=== PATIENT | female | born 2000 | race Caucasian/White ===

== ENCOUNTER 2023-01-04 16:55 | Emergency (ER) | payer SELFPAY ==
[~2023-01-04] VITALS: Ht 167.6 cm; Wt 43.2 kg
[2023-01-04 17:03] VITALS: BP 116/86
[2023-01-04] MEDS ORDERED: ACYC-161 PO (20:02)
[2023-01-04] MEDS ORDERED: PRED20TA2 PO (20:02)
[2023-01-04] MEDS ORDERED: ARTISOL13 RIGHTEYE (20:12)
== END 2023-01-04 20:43 | disposition home or self-care (01) ==
LOC: ER 16:55
DX: G51.0 Bell's palsy (principal); Z20.822 Contact with and (suspected) exposure to COVID-19
CPT/HCPCS: 36415; 70450; 87426; 87804

== ENCOUNTER 2024-11-17 20:02 | Emergency (ER) | payer BC, MEDICAID ==
[~2024-11-17] VITALS: Ht 167.6 cm; Wt 44.5 kg
[~2024-11-17 20:02] MED LIST: ACYC400T16 PO; ARTISOL13 RIGHTEYE; PRED20TA2 PO
[2024-11-17 20:39] VITALS: BP 138/87
[2024-11-17] MEDS ORDERED: AMOX500C2 PO (20:56)
--- NOTE | 2024-11-17 20:57 | ED.PDOC ---
History of Present Illness HPI Comments 24-year-old female who came to ER for fever. Patient states she has been having fever and cough that just started today. Noted also to have throat pain. Patient also been having auditory and visual hallucinations, which has been happening for some time now. Patient denies any suicidal or homicidal ideation s. Has not been taking any medications regarding her hallucinations, nor has she seen a psychiatrist regarding it. Chief Complaint: Fever Time Seen by MD: 20:56 Primary Care Provider: none Reviewed Notes: Nurses Notes Allergies: Coded Allergies: Hydrocodone (Verified Allergy, Unknown, 11/17/24) Home Meds Active Scripts Amoxicillin Trihydrate (Amoxicillin) 500 Mg Cap, 1 CAP PO BID for 10 Days, #20 CAP Prov:GALLO ESTEBAN MD 11/17/24 Artificial Tear Solution (ARTIFICIAL TEARS) Tears Kerry, 1 DROP RIGHTEYE Q1HR PRN, #15 ML 0 Refills Prov:HERMES GONSALVES 01/04/23 Acyclovir (ZOVIRAX TABLET) 400 Mg Tb, 400 MG PO 5XD, #35 TAB 0 Refills Prov:HERMES GONSALVES 01/04/23 Prednisone (Prednisone) 20 Mg Tab, 3 TAB PO DAILY for 7 Days, #21 MG 0 Refills Prov:HREMES GONSALVES 01/04/23 Information Source: Patient Mode of Arrival: Ambulatory Severity: Moderate Timing: Hours Duration: Intermittent Prehospital treatment: None Past Medical History PAST MEDICAL HISTORY: Denies Surgical History: Denies all surgeries FAMILY SERVICE COUNSELOR History: Denies all FAMILY SERVICE COUNSELOR Hx Family History Family History: Reviewed,noncontributory to illness Social History Smoker: Non-Smoker Alcohol: Denies ETOH Use Drugs: Denies Drug Use Lives In: Home Constitutional: reports: fever; denies: chills, diaphoresis, fatigue, malaise, sweats, weakness, others EENTM: reports: throat pain; denies: blurred vision, double vision, ear bleeding, ear discharge, ear drainage, ear pain, ear ringing, eye pain, eye redness, hearing loss, mouth pain, mouth swelling, nasal discharge, nose bleeding, nose congestion, nose pain, photophobia, tearing, throat swelling, voice changes, others Respiratory: reports: cough; denies: hemoptysis, orthopnea, SOB at rest, shortness of breath, SOB with excertion, stridor, wheezing, others Cardiovascular: denies: chest pain, dizzy spells, diaphoresis, Dyspnea on e xertion, edema, irregular heart beat, left arm pain, lightheadedness, palpitations, PND, syncope, others Gastrointestinal: denies: abdomen distended, abdominal pain, blood streaked bowels, constipated, diarrhea, dysphagia, difficulty swallowing, hematemesis, melena, nausea, poor appetite, poor fluid intake, rectal bleeding, rectal pain, vomiting, others Genitourinary: denies: abnormal vagina bleeding, burning, dyspareunia, dysuria, flank pain, frequency, hematuria, incontinence, pain, , vagina discharge, urgency, others Neurological: denies: dizziness, fainting, headache, left sided numbness, left sided weakness, numbness, paresthesia, pre-existing deficit, right sided numbness, right sided weakness, seizure, speech problems, tingling, tremors, weakness, others Musculoskeletal: denies: back pain, gout, joint pain, joint swelling, muscle pain, muscle stiffness, neck pain, others Integumetry: denies: bruises, change in color, change in hair/nails, dryness, laceration, lesions, lumps, rash, wounds, others Allergic/Immunocompromised: denies: Difficulty Healing, Frequent Infections, Hives, Itching, others Hematologic/Lymphatic: denies: anemia, blood clots, easy bleeding, easy bruising, swollen glands, others Endocrine: denies: excessive hunger, excessive sweating, excessive thirst, excessive urination, flushing, intolerance to cold, intolerance to heat, unexplained weight gain, unexplained weight loss, others Psychiatric: denies: anxiety, bipolar disorder, depression, hopeless, panic disorder, schizophrenia, sleepless, suicidal, others Physical Exam General Appearance: No Apparent Distress, Normal HEENT: Normal ENT Inspection, Pharynx Normal, TMs Normal Neck: Full Range of Motion, Non-Tender, Normal, Normal Inspection Respiratory: Chest Non-Tender, Lungs Clear, No Accessory Muscle Use, No Respiratory Distress, Normal Breath Sounds Cardiovascular: No Edema, No JVD, No Murmur, No Gallop, Normal Peripheral Pulses, Regular Rate/Rhythm Breast Exam: Deferred Gastrointestinal: No Organomegaly, Non Tender, No Pulsatile Mass, Normal Bowel Sounds, Soft Genitalia: Deferred Pelvic: Deferred Rectal: Deferred Extremities: No calf tenderness, Normal capillary refill, Normal inspection, Normal range of motion, Non-tender, No pedal edema Musculoskeletal : Apperance: Normal Neurologic: Alert, poiser balance II-XII nml as Tested, No Motor Deficits, Normal Affect, Normal Mood, No Sensory Deficits Cerebellar Function: Normal Reflexes: Normal Skin: Dry, Normal Color, Warm Lymphatic: No Adenopathy Was a procedure done? Was a procedure done?: No Differential Dx Considerations may include: Viral syndrome, influenza, COVID-19, urinary tract infection, upper respiratory infection, schizophrenia X-Ray, Labs, Meds, VS Vital Signs Date Time Temp Pulse Resp B/P (MAP) Pulse Ox O2 Delivery O2 Flow Rate FiO2 11/17/24 22:00 Room Air 11/17/24 22:00 98.9 11/17/24 21:45 98.9 100 18 96 98.9 11/17/24 21:10 99.3 11/17/24 20:39 16 94 Room Air* 0 21 11/17/24 20:39 99.3 118 16 138/87 (104) 94 99.3 11/17/24 20:39 99.3 118 16 138/87 (104) 94 Current Medications Medications (Trade) Dose Ordered Sig/Tito Route Start Time Stop Time Status Last Admin Acetaminophen (Tylenol Tablet) 1,000 mg ONCE ONCE PO 11/17/24 21:00 11/17/24 21:01 DC 11/17/24 21:10 Amoxicillin 500 mg ONCE ONCE PO 11/17/24 21:00 11/17/24 21:01 DC 11/17/24 21:09 Time of 1ST Reevaluation: 20:53 Reevaluation 1ST: Unchanged Patient Education/Counseling: Diagnosis, Treatment Family Education/Counseling: No Family Present Departure 1 Departure Time of Disposition: 21:30 Impression: Primary Impression: Upper respiratory infection, acute Disposition: 01 HOME / SELF CARE / HOMELESS Condition: Stable e-Prescriptions Amoxicillin Trihydrate (Amoxicillin) 500 Mg Cap 1 CAP PO BID for 10 Days, #20 CAP Prov: GALLO ESTEBAN MD 11/17/24 Discharged With: Self Critical Care Note Critical Care Time?: No Stability Stability form required: No Heart Score Heart Score: Heart Score Response (Comments) Value History N/A 0 EKG N/A 0 Age N/A 0 Risk Factors N/A 0 Troponin N/A 0 Total 0 I personally scribed for GALLO ESTEBAN MD ([email or web address]) on 11/17/24 at 20:57. Electronically submitted by Iker Grant ([email or web address]). GALLO ESTEBAN MD Nov 17, 2024 20:57
[2024-11-17] MEDS: AMOXICILLIN TRIHYDRATE 250 MG CAP PO ONE (21:09)
[2024-11-17] MEDS: ACETAMINOPHEN 325 MG TAB PO ONE (21:10)
[2024-11-17 21:45] VITALS: PULSE 100; RESP 18; O2SAT 96
[2024-11-17 22:00] VITALS: TEMP 98.9
== END 2024-11-17 22:45 | disposition home or self-care (01) ==
LOC: ER 20:02
DX: J06.9 Acute upper respiratory infection, unspecified (principal); Z79.52 Long term (current) use of systemic steroids; Z88.5 Allergy status to narcotic agent

== ENCOUNTER 2025-05-27 09:48 | Emergency (ER) | payer MEDICAID ==
[~2025-05-27] VITALS: Ht 167.6 cm; Wt 43.6 kg
[~2025-05-27 09:48] MED LIST changes: +AMOX500C2 PO
--- NOTE | 2025-05-27 11:26 | ED.PDOC ---
History of Present Illness HPI Comments 25 year old female presents to the ED for the c/c of an Earache. Pt states that her Earache has been onset for the past 4x days with no alleviating factors at this time. Pt notes that there was blood coming from her ear, but there was no visible bleeding upon examination. Ear was non tender upon assessment. Redness to oropharynx and pain to TMJ noted. No other symptoms or modifying factors reported at this time. Patient is alert and oriented x4 and has a stable gait. Chief Complaint: Earache Time Seen by MD: 11:22 Primary Care Provider: none Reviewed Notes: Nurses Notes, Medications, Allergies Allergies: Coded Allergies: Hydrocodone (Verified Allergy, Unknown, 11/17/24) Home Meds Active Scripts Naproxen (Naproxen) 375 Mg Tab, 375 MG PO TID for 10 Days, #30 TAB Prov:ADIEL WATERMAN MD 05/27/25 Amoxicillin Trihydrate (Amoxicillin) 500 Mg Cap, 1 CAP PO BID for 10 Days, #20 CAP Prov:GALLO ESTEBAN MD 11/17/24 Artificial Tear Solution (ARTIFICIAL TEARS) Tears Kerry, 1 DROP RIGHTEYE Q1HR PRN, #15 ML 0 Refills Prov:HERMES GONSALVES 01/04/23 Acyclovir (ZOVIRAX TABLET) 400 Mg Tb, 400 MG PO 5XD, #35 TAB 0 Refills Prov:HERMES GONSALVES 01/04/23 Prednisone (Prednisone) 20 Mg Tab, 3 TAB PO DAILY for 7 Days, #21 MG 0 Refills Prov:HERMES GONSALVES 01/04/23 Information Source: Patient Mode of Arrival: Ambulatory Severity: Mild Timing: Days Duration: Since onset, Days Prehospital treatment: None Past Medical History PAST MEDICAL HISTORY: Denies Surgical History: Denies all surgeries HOUSE WORKER GENERAL History: Denies all HOUSE WORKER GENERAL Hx Family History Family History: Reviewed,noncontributory to illness Social History Smoker: Non-Smoker Alcohol: Denies ETOH Use Drugs: Denies Drug Use Lives In: Home Constitutional: denies: chills, diaphoresis, fatigue, fever, malaise, sweats, weakness, others EENTM: reports: ear pain; denies: blurred vision, double vision, ear bleeding, ear discharge, ear drainage, ear ringing, eye pain, eye redness, hearing loss, mouth pain, mouth swelling, nasal discharge, nose bleeding, nose congestion, nose pain, photophobia, tearing, throat pain, throat swelling, voice changes, others Respiratory: denies: cough, hemoptysis, orthopnea, SOB at rest, shortness of breath, SOB with excertion, stridor, wheezing, others Cardiovascular: denies: chest pain, dizzy spells, diaphoresis, Dyspnea on exertion, edema, irregular heart beat, left arm pain, lightheadedness, palpitations, PND, syncope, others Gastrointestinal: denies: abdomen distended, abdominal pain, blood streaked bowels, constipated, diarrhea, dysphagia, difficulty swallowing, hematemesis, melena, nausea, poor appetite, poor fluid intake, rectal bleeding, rectal pain, vomiting, others Genitourinary: denies: abnormal vagina bleeding, burning, dyspareunia, dysuria, flank pain, frequency, hematuria, incontinence, pain, , vagina discharge, urgency, others Neurological: denies: dizziness, fainting, headache, left sided numbness, left sided weakness, numbness, paresthesia, pre-existing deficit, right sided numbness, right sided weakness, seizure, speech problems, tingling, tremors, weakness, others Musculoskeletal: denies: back pain, gout, joint pain, joint swelling, muscle pain, muscle stiffness, neck pain, others Integumetry: denies: bruises, change in color, change in hair/nails, dryness, laceration, lesions, lumps, rash, wounds, others Allergic/Immunocompromised: denies: Difficulty Healing, Frequent Infections, Hives, Itching, others Hematologic/Lymphatic: denies: anemia, blood clots, easy bleeding, easy bruising, swollen glands, others Endocrine: denies: excessive hunger, excessive sweating, excessive thirst, excessive urination, flushing, intolerance to cold, intolerance to heat, unexplained weight gain, unexplained weight loss, others Psychiatric: denies: anxiety, bipolar disorder, depression, hopeless, panic disorder, schizophrenia, sleepless, suicidal, others All Other Systems: Reviewed and Negative Physical Exam General Appearance: No Apparent Distress, Normal HEENT: Normal ENT Inspection, PERRL/EOMI, Pharyngeal Erythema, Pharynx Normal, TMs Normal, Other (No gross abnromaility noted to the Left ear, redness to the oropharynx and pain on PPT to TMJ noted) Neck: Full Range of Motion, Non-Tender, Normal, Normal Inspection Respiratory: Chest Non-Tender, Lungs Clear, No Accessory Muscle Use, No Respiratory Distress, Normal Breath Sounds Cardiovascular: No Edema, No JVD, No Murmur, Normal Peripheral Pulses, Regular Rate/Rhythm Breast Exam: Deferred Gastrointestinal: Non Tender, No Pulsatile Mass, Normal Bowel Sounds, Soft Genitalia: Deferred Pelvic: Deferred Rectal: Deferred Extremities: No calf tenderness, Normal capillary refill, Normal inspection, Normal range of motion, Non-tender, No pedal edema Musculoskeletal : Apperance: Normal Neurologic: Alert, No Motor Deficits, Normal Affect, Normal Mood, No Sensory Deficits Cerebellar Function: Normal Reflexes: Normal Skin: Dry, Normal Color, Warm Peripheral Pulses: 1+ carotid (R), 1+ carotid (L) Lymphatic: No Adenopathy Was a procedure done? Was a procedure done?: No Differential Dx Considerations may include: Otitis media otitis externa TMJ arthralgia pharyngitis X-Ray, Labs, Meds, VS Vital Signs Date Time Temp Pulse Resp B/P (MAP) Pulse Ox O2 Delivery O2 Flow Rate FiO2 05/27/25 11:39 98.2 76 18 104/63 (77) 98 98.2 05/27/25 09:55 98.9 93 14 118/67 (84) 96 98.9 X-Ray, Labs, Meds, VS Comment Course in the emergency department patient came in complaining of left ear pain Both ears are clear in the Left TMJ exquisite tenderness under pressure Patient will be discharged with anti-inflammatory Time of 1ST Reevaluation: 11:52 Reevaluation 1ST: Unchanged Time of 2ND Reevaluation: 11:57 Reevaluation 2ND: Unchanged Consultation: PCP Patient Education/Counseling: Diagnosis, Treatment, Prognosis, Need For Follow Up Family Education/Counseling: Diagnosis, Treatment, Prognosis, Need For Follow Up, No Family Present SEPSIS Sepsis Screen Date sepsis recognized/suspect: May 27, 2025 Time Sepsis recognized/suspect: 954 Recent Procedure: No On Antibiotic Therapy: No Respiratory Rate >20: No Heart Rate >90: No Temp<36 C (96.8 F) or >38.3 C: No SBP <90 or MAP <65 mmHG: No New Acute Mental Status Change: No Is the patient on CPAP, BIPAP,: No Vital Signs Date Time Temp Pulse Resp B/P (MAP) Pulse Ox O2 Delivery O2 Flow Rate FiO2 05/27/25 11:39 98.2 76 18 104/63 (77) 98 98.2 05/27/25 09:55 98.9 93 14 118/67 (84) 96 98.9 Departure 1 Departure Time of Disposition: 16:45 Impression: Primary Impression: Arthralgia of left temporomandibular joint Disposition: HOME / SELF CARE / HOMELESS Condition: Fair Additional Instructions: hot Compresses and follow up with your P cp e-Prescriptions Naproxen (Naproxen) 375 Mg Tab 375 MG PO TID for 10 Days, #30 TAB Prov: ADIEL WATERMAN MD 05/27/25 Discharged With: Self Critical Care Note Critical Care Time?: No Stability Stability form required: No Heart Score Heart Score: Heart Score Response (Comments) Value History N/A 0 EKG N/A 0 Age <45 0 Risk Factors No known risk factors 0 Troponin N/A 0 Total 0 I personally scribed for ADIEL WATERMAN MD ([email or web address]) on 05/27/25 at 11:26. E lectronically submitted by Ted Sunshine ([email or web address]). ADIEL WATERMAN MD May 27, 2025 11:26
[2025-05-27 11:39] VITALS: BP 104/63; PULSE 76; RESP 18; TEMP 98.2; O2SAT 98
[2025-05-27] MEDS ORDERED: NAPR-957 PO (12:00)
== END 2025-05-27 12:23 | disposition home or self-care (01) ==
LOC: ER 09:48
DX: M26.622 Arthralgia of left temporomandibular joint (principal); Z88.5 Allergy status to narcotic agent; Z79.52 Long term (current) use of systemic steroids; Z79.1 Long term (current) use of non-steroidal anti-inflammatories (NSAID); Z79.899 Other long term (current) drug therapy